=== PATIENT | female | born 1980 | race Two or more races ===

== ENCOUNTER 2016-07-14 00:57 | Emergency (ER) | payer OTHER ==
[~2016-07-14] VITALS: Ht 165.1 cm; Wt 65.8 kg
[~2016-07-14 00:57] MED LIST: MELO-270 PO; TRAZ-144 PO
[2016-07-14 01:02] VITALS: BP 123/87
[2016-07-14 02:00] LABS: ADD UA MICROSCOPIC YES; KETONES,URINE NEGATIVE (NEGATIVE); LEUKOCYTE ESTERASE ,URINE 3+ (NEGATIVE); PH,URINE 6.5 (5.0-8.0)
[2016-07-14 02:01] LABS: PREGNANCY TEST URINE QUAL NEGATIVE (NEGATIVE)
[2016-07-14 02:34] LABS: ADD URINE CULTURE YES; RBC,URINE 0-2 /HPF (0-2); WBC,URINE TOO NUMEROUS TO COUN /HPF (0-3)
[2016-07-14] MEDS ORDERED: PHENAZOPYRIDINE HCL 200 MG TABLET ONE (02:46)
[2016-07-14] MEDS ORDERED: HYDROCODONE/APAP 5/325MG 1 EACH TABLET ONE (02:46)
[2016-07-14] MEDS ORDERED: LEVOFLOXACIN (750 MG) 750 MG TABLET ONE (02:46)
[2016-07-14] MEDS ORDERED: HYDROCODONE/APAP 5/325MG 1 EACH TABLET PO ONE (03:00)
[2016-07-14] MEDS ORDERED: PHENAZOPYRIDINE HCL 200 MG TABLET PO ONE (03:00)
[2016-07-14] MEDS ORDERED: LEVOFLOXACIN (750 MG) 750 MG TABLET PO SCH (03:00)
== END 2016-07-14 03:26 | disposition home or self-care (01) ==
LOC: ER 00:57
DX: N12 Tubulo-interstitial nephritis, not specified as acute or chronic (principal); Z88.1 Allergy status to other antibiotic agents
CPT/HCPCS: 81001; 84703; 87077; 87086; 87186; 99284; A4606; Z7610; 81000-TC

== ENCOUNTER 2023-02-27 08:47 | Emergency (ER) | payer MEDICAID, OTHER ==
[~2023-02-27] VITALS: Ht 165.1 cm; Wt 77.1 kg
[~2023-02-27 08:47] MED LIST changes: +MELO-105 PO; -MELO-270 PO; -TRAZ-144 PO; +TRAZ-182 PO
[2023-02-27] MEDS ORDERED: FENTANYL PF 100MCG/2ML AMPUL IM ONE ×2 (09:30→11:00)
[2023-02-27] MEDS ORDERED: FENTANYL PF 100MCG/2ML AMPUL ONE ×2 (09:51→10:58)
[2023-02-27] MEDS ORDERED: HYDROCODONE/APAP 5/325MG TABLET PO ONE (10:30)
[2023-02-27] MEDS ORDERED: KETOROLAC TROMETHAMINE INJ 30 MG/ML VIAL IM ONE (10:30)
[2023-02-27] MEDS ORDERED: HYDROCODONE/APAP 5/325MG TABLET ONE (10:39)
[2023-02-27] MEDS ORDERED: KETOROLAC TROMETHAMINE INJ 30 MG/ML VIAL ONE (10:40)
[2023-02-27] MEDS ORDERED: HYDR-4209 PO (11:18)
[2023-02-27] MEDS ORDERED: KETO10TA2 PO (11:19)
[2023-02-27 11:32] VITALS: BP 125/61; TEMP 98.3; O2SAT 100
== END 2023-02-27 11:34 | disposition home or self-care (01) ==
LOC: ER 09:11
DX: S62.612A Displaced fracture of proximal phalanx of right middle finger, initial encounter for closed fracture (principal); S62.614A Displaced fracture of proximal phalanx of right ring finger, initial encounter for closed fracture; S62.616A Displaced fracture of proximal phalanx of right little finger, initial encounter for closed fracture; S00.11XA Contusion of right eyelid and periocular area, initial encounter; Z79.899 Other long term (current) drug therapy; Z90.49 Acquired absence of other specified parts of digestive tract; V89.2XXA Person injured in unspecified motor-vehicle accident, traffic, initial encounter; Y93.89 Activity, other specified; Y92.89 Other specified places as the place of occurrence of the external cause; Y99.8 Other external cause status
CPT/HCPCS: 29125; 70450; 70486; 72125; 73110; 73130; 96372; 99285; J1885; J3010

== ENCOUNTER 2023-06-30 18:11 | Inpatient (IN) | payer MEDICAID ==
[~2023-06-30] VITALS: Ht 165.1 cm; Wt 77.1 kg
[~2023-06-30 18:11] MED LIST changes: +HYDR-4209 PO; +KETO10TA2 PO
[2023-06-30 20:28] VITALS: TEMP 97.8
[2023-06-30] MEDS ORDERED: CEFEPIME 1 GM in IV D5W 50 ML IV ONE (21:00)
[2023-06-30] MEDS ORDERED: VANCOMYCIN 1 GM in IV D5W 250 ML IV ONE (21:00)
[2023-06-30] MEDS ORDERED: KETOROLAC TROMETHAMINE 15 MG/ML VIAL IV ONE (21:00)
[2023-06-30] MEDS ORDERED: IV NS 0.9% 1,000 ML BAG IV ONE (21:00)
[2023-06-30 22:14] LABS: BASOPHILS # (AUTO) 0.1 K/uL (0.0-0.2); BASOPHILS % (AUTO) 0.9 % (0.0-2.0); EOSINOPHILS # (AUTO) 0.2 K/uL (0.0-0.7); HEMATOCRIT 38 % (33-45); HEMOGLOBIN 12.4 g/dL (11.5-14.8); LYMPHOCYTES # (AUTO) 2.4 K/uL (0.8-4.8); LYMPHOCYTES % (AUTO) 22.7 % (20.0-44.0); MEAN CORPUSCULAR HEMOGLOBIN 27 PG (26.0-33.0); MEAN CORPUSCULAR HGB CONC 33 g/dl (31.0-36.0); MEAN CORPUSCULAR VOLUME 81 fL (82-100); MONOCYTES # (AUTO) 0.6 K/uL (0.1-1.30); MONOCYTES % (AUTO) 5.5 % (2.0-12.0); NEUTROPHILS # (AUTO) 7.3 K/uL (1.8-8.9); NEUTROPHILS % (AUTO) 68.9 % (43.0-81.0); PLATELET COUNT (AUTO) 198 K/uL (150-450); RED BLOOD CELL COUNT(AUTO) 4.68 MIL/uL (4.0-5.2); WHITE BLOOD COUNT (AUTO) 10.6 K/uL (4.3-11.0)
[2023-06-30 22:26] LABS: CALCIUM, SERUM 8.8 mg/dL (8.5-10.1); CREATININE 0.6 mg/dL (0.6-1.3); INR 0.96 (0.91-1.10); PARTIAL THROMBOPLASTIN TIME 23.5 SEC (24.3-34.3); PROTHROMBIN TIME 10.2 SECS (9.2-11.1)
[2023-06-30 22:32] LABS: ALBUMIN 3.1 g/dL (3.4-5.0); BILIRUBIN,DIRECT 0.2 mg/dL (0.0-0.2); BILIRUBIN,TOTAL 0.6 mg/dL (0.2-1.0); TOTAL PROTEIN, SERUM 7.8 g/dL (6.4-8.2)
[2023-06-30 22:50] LABS: LACTIC ACID 1.4 mmol/L (0.4-2.0)
[2023-06-30] MEDS ORDERED: CEFEPIME 1 GM VIAL ONE (22:56)
[2023-06-30] MEDS ORDERED: POTASSIUM CHLORIDE 20 MEQ TAB.PRT.SR PO ONE ×2 (22:57→23:00)
[2023-06-30] MEDS ORDERED: KETOROLAC TROMETHAMINE 15 MG/ML VIAL ONE (23:00)
[2023-06-30] MEDS ORDERED: VANCOMYCIN 1 GM /D5W 250 ML PB IV ONE (23:12)
[2023-07-01 02:20] LABS: APPEARANCE,URINE CLEAR (CLEAR); BILIRUBIN,URINE NEGATIVE (NEGATIVE); BLOOD, URINE NEGATIVE Ery/uL (NEGATIVE); COLOR,URINE YELLOW (YELLOW); KETONES,URINE NEGATIVE (NEGATIVE); LEUKOCYTE ESTERASE ,URINE NEGATIVE (NEGATIVE); NITRITE, URINE NEGATIVE (NEGATIVE); PH,URINE 6.5 (5.0-8.0); PROTEIN,URINE NEGATIVE (NEGATIVE); UGLUCOSE NEGATIVE (NEGATIVE); UROBILINOGEN,URINE 0.2 EU/dL (0.2)
[2023-07-01 02:56] LABS: PREGNANCY TEST URINE QUAL NEGATIVE (NEGATIVE)
[2023-07-01] MEDS ORDERED: MAGNESIUM HYDROXIDE 30 ML UDC PO PRN (03:00)
[2023-07-01] MEDS ORDERED: MORPHINE SULFATE INJ 2 MG/ML DISP.SYRIN IV PRN (03:00)
[2023-07-01] MEDS ORDERED: ACETAMINOPHEN 325 MG TABLET PO PRN (03:00)
[2023-07-01] MEDS ORDERED: ONDANSETRON HCL/PF 4 MG/2 ML VIAL IVP PRN (03:00)
[2023-07-01] MEDS ORDERED: IV NS 0.9% 1,000 ML IV PRN (03:00)
[2023-07-01] MEDS ORDERED: ENOXAPARIN SODIUM 40 MG/0.4 ML DISP.SYRIN SQ SCH (03:00)
[2023-07-01] MEDS ORDERED: IOHEXOL-300 100 ML VIAL IV ONE (03:02)
[2023-07-01 05:00] VITALS: BP 82/53; O2SAT 97
[2023-07-01] MEDS ORDERED: PIPERACILLIN /TAZOBACTAM 3.375 G in IV D5W 50 ML IV SCH ×2 (06:00→09:00)
[2023-07-01] MEDS ORDERED: MORPHINE SULFATE INJ 2 MG/ML DISP.SYRIN ONE (07:02)
[2023-07-01] MEDS ORDERED: PANTOPRAZOLE 40 MG TABLET.DR PO SCH (07:30)
[2023-07-01 08:15] LABS: BASOPHILS % (AUTO) 0.1 % (0.0-2.0); EOSINOPHILS # (AUTO) 0.3 K/uL (0.0-0.7); EOSINOPHILS % (AUTO) 3.2 % (0.0-6.0); HEMATOCRIT 36 % (33-45); HEMOGLOBIN 11.7 g/dL (11.5-14.8); LYMPHOCYTES # (AUTO) 2.3 K/uL (0.8-4.8); LYMPHOCYTES % (AUTO) 27.5 % (20.0-44.0); MEAN CORPUSCULAR HEMOGLOBIN 27 PG (26.0-33.0); MEAN CORPUSCULAR HGB CONC 32 g/dl (31.0-36.0); MEAN CORPUSCULAR VOLUME 83 fL (82-100); MONOCYTES # (AUTO) 0.8 K/uL (0.1-1.30); MONOCYTES % (AUTO) 9.8 % (2.0-12.0); NEUTROPHILS % (AUTO) 59.4 % (43.0-81.0); PLATELET COUNT (AUTO) 161 K/uL (150-450); RED BLOOD CELL COUNT(AUTO) 4.35 MIL/uL (4.0-5.2); RED CELL DISTRIBUTION WIDTH 15.4 % (11.5-15.0); WHITE BLOOD COUNT (AUTO) 8.4 K/uL (4.3-11.0)
[2023-07-01] MEDS ORDERED: PANTOPRAZOLE 40 MG TABLET.DR PO ONE (08:24)
[2023-07-01 08:27] LABS: ERYTHROCYTE SEDIMENTATION RATE 16 MM/HR (0-20)
[2023-07-01 08:51] LABS: CALCIUM, SERUM 7.9 mg/dL (8.5-10.1); CREATININE 0.5 mg/dL (0.6-1.3); MAGNESIUM 1.9 mg/dL (1.8-2.4); POTASSIUM 3.7 mmol/L (3.5-5.1)
[2023-07-01 09:31] LABS: C-REACTIVE PROTEIN 6.35 mg/dL (0.0-0.30)
[2023-07-01] MEDS ORDERED: PIPERACI/TAZO 3.375GM/D5W 50ML PB IV ONE (09:59)
[2023-07-01] MEDS ORDERED: VANCOMYCIN 1 GM /D5W 250 ML PB IV ONE (09:59)
[2023-07-01] MEDS ORDERED: VANCOMYCIN 1 GM in IV D5W 250ml IV SCH (10:00)
== END 2023-07-02 14:00 | disposition left against medical advice (07) | DRG 383 ==
LOC: ER 18:15 → TRANSITION 07-01 05:49
PROVIDERS: ADMIT Internal Medicine; ATTEND Internal Medicine
DX: L03.116 Cellulitis of left lower limb (principal); E43 Unspecified severe protein-calorie malnutrition; E87.1 Hypo-osmolality and hyponatremia; E88.09 Other disorders of plasma-protein metabolism, not elsewhere classified; Z90.49 Acquired absence of other specified parts of digestive tract; L02.416 Cutaneous abscess of left lower limb; E86.1 Hypovolemia; E87.6 Hypokalemia; Z68.28 Body mass index [BMI] 28.0-28.9, adult; F11.10 Opioid abuse, uncomplicated; F15.10 Other stimulant abuse, uncomplicated
CPT/HCPCS: 36415; 71045-TC; 73701-TC; 80048-TC; 80076-TC; 83605-TC; 83735-TC; 84702-TC; 84703-TC; 85025-TC; 85652-TC; 85730-TC; 86140-TC; 87040-TC; 87086-TC; 93971-TC; A4223; A6253; G0378; J0692; J1885; J2270; J2543; J3370; J7030; J7060; Q9967

== ENCOUNTER 2024-09-02 21:37 | Emergency (ER) | payer MEDICAID ==
[~2024-09-02] VITALS: Ht 162.6 cm; Wt 82.6 kg
[2024-09-02] MEDS: IV NS 0.9% 1,000 ML IV ONE (22:56)
[2024-09-02] MEDS: VANCOMYCIN HCL 1.25 GM in IV D5W 260 ML IV ONE (22:56)
[2024-09-02] MEDS ORDERED: VANCOMYCIN 1 GM /D5W 250 ML PB IV ONE (23:01)
[2024-09-02] MEDS ORDERED: VANCOMYCIN 500 MG VIAL ONE (23:01)
[2024-09-02 23:14] LABS: BASOPHILS # (AUTO) 0.1 K/uL (0.0-0.2); BASOPHILS % (AUTO) 0.7 % (0.0-2.0); EOSINOPHILS # (AUTO) 0.1 K/uL (0.0-0.7); EOSINOPHILS % (AUTO) 1.5 % (0.0-6.0); HEMATOCRIT 40 % (33-45); HEMOGLOBIN 13.6 g/dL (11.5-14.8); LYMPHOCYTES # (AUTO) 1.9 K/uL (0.8-4.8); LYMPHOCYTES % (AUTO) 19.9 % (20.0-44.0); MEAN CORPUSCULAR HEMOGLOBIN 28 PG (26.0-33.0); MEAN CORPUSCULAR HGB CONC 34 g/dl (31.0-36.0); MEAN CORPUSCULAR VOLUME 83 fL (82-100); MONOCYTES # (AUTO) 0.7 K/uL (0.1-1.30); MONOCYTES % (AUTO) 7.3 % (2.0-12.0); NEUTROPHILS # (AUTO) 6.7 K/uL (1.8-8.9); NEUTROPHILS % (AUTO) 70.6 % (43.0-81.0); PLATELET COUNT (AUTO) 217 K/uL (150-450); RED BLOOD CELL COUNT(AUTO) 4.79 MIL/uL (4.0-5.2); RED CELL DISTRIBUTION WIDTH 14.4 % (11.5-15.0); WHITE BLOOD COUNT (AUTO) 9.4 K/uL (4.3-11.0)
[2024-09-02 23:22] LABS: CALCIUM, SERUM 8.2 mg/dL (8.5-10.1); CREATININE 0.6 mg/dL (0.6-1.3); POTASSIUM 3.6 mmol/L (3.5-5.1)
[2024-09-02] MEDS ORDERED: KETOROLAC TROMETHAMINE 15 MG/ML VIAL ONE (23:23)
[2024-09-02] MEDS: KETOROLAC TROMETHAMINE 15 MG/ML VIAL IV ONE (23:24)
[2024-09-02 23:28] LABS: ALBUMIN 3.1 g/dL (3.4-5.0); BILIRUBIN,TOTAL 0.4 mg/dL (0.2-1.0); TOTAL PROTEIN, SERUM 7.1 g/dL (6.4-8.2)
[2024-09-02 23:30] LABS: LACTIC ACID 1.8 mmol/L (0.4-2.0)
[2024-09-02] MEDS ORDERED: CEPH500C2 PO (23:54)
[2024-09-02] MEDS ORDERED: SULF1TAB48 PO (23:54)
[2024-09-03 00:41] VITALS: BP 130/80; TEMP 98; O2SAT 98
== END 2024-09-03 00:42 | disposition left against medical advice (07) ==
LOC: ER 21:52
DX: L03.116 Cellulitis of left lower limb (principal); J44.9 Chronic obstructive pulmonary disease, unspecified; Z86.711 Personal history of pulmonary embolism; Z87.440 Personal history of urinary (tract) infections
CPT/HCPCS: 99285; 96365; 93971; 96366; 96375; 85025; 87040; 83605; 80053; 82962; 80307; J1885; J3370 ×2; J7030; A4223; 36415; J7060